=== PATIENT | female | born 1995 | race Hispanic/Latino ===

== ENCOUNTER 2023-06-19 07:48 | Outpatient (CLI) | payer OTHER | END 2023-06-19 07:49 | disposition home or self-care (01) | LOC: BICULT 07:48 | PROVIDERS: ATTEND Family Medicine | DX: Z34.02 Encounter for supervision of normal first pregnancy, second trimester (principal); Z3A.21 21 weeks gestation of pregnancy | CPT/HCPCS: 76805 ==